=== PATIENT | female | born 1995 | race Two or more races ===

== ENCOUNTER 2021-07-14 09:54 | Emergency (ER) | payer SELFPAY ==
[~2021-07-14] VITALS: Ht 162.6 cm; Wt 72.7 kg
[2021-07-14] MEDS ORDERED: IV NORMAL SALINE 1000ML BAG 1,000 ML IV ONE (10:30)
[2021-07-14 10:39] LABS: BASO % 0 % (0-3); EOS % 0 % (0-3); HEMOGLOBIN 14.7 g/dL (12.0-15.5); LYMPH # 1.7 x10^3/uL (1.0-4.8); LYMPH % 22 % (24-48); MEAN CORPUSCULAR HEMOGLOBIN 30 pg (25-35); MEAN CORPUSCULAR HGB CONC 35 g/dL (31-37); MEAN CORPUSCULAR VOLUME 84 fL (79-100); MONO # 0.3 x10^3/uL (0.0-1.1); MONO % 4 % (0-9); NEUT # 5.8 x10^3/uL (1.8-7.7); NEUT % 74 % (31-73); PLATELET COUNT 285 x10^3/uL (140-400); RED BLOOD COUNT 4.97 x10^6/uL (3.50-5.40); RED CELL DISTRIBUTION WIDTH 12.9 % (11.5-14.5); WHITE BLOOD COUNT 7.9 x10^3/uL (4.0-11.0)
[2021-07-14] MEDS ORDERED: ASPIRIN ENTERIC COATED 325 MG TABLET.DR. PO ONE (10:45)
[2021-07-14 10:47] LABS: CALCIUM 9.2 mg/dL (8.5-10.1); CREATININE 0.7 mg/dL (0.6-1.0); GFR 99.6; POTASSIUM 3.4 mmol/L (3.5-5.1)
--- NOTE | 2021-07-14 10:50 | RAD ---
AP chest. HISTORY: Chest pain AP view was taken of the chest. The patient's taken a very poor inspiration. There is no pleural effu jesús. The heart is normal in size. There is mild crowding of the vasculature. No definite infiltrates are noted. IMPRESSION: 1. Poor inspiration. 2. Crowding of the vasculature without definite infiltrates. Electronically signed by: Quincy Michelle MD (07/14/2021 10:48 AM) [facility]
[2021-07-14 10:53] LABS: ALBUMIN 3.8 g/dL (3.4-5.0); ALBUMIN/GLOBULIN RATIO 0.8 (1.0-1.7); MAGNESIUM 1.9 mg/dL (1.8-2.4); TOTAL BILIRUBIN 0.4 mg/dL (0.2-1.0); TOTAL PROTEIN 8.4 g/dL (6.4-8.2)
--- NOTE | 2021-07-14 10:54 | PHYS DOC ---
Past Medical History Additional Past Medical Histor: Chronic chest pain, "heart issue" Past Surgical History: No Surgical History Smoking Status: Never Smoker Alcohol Use: None Drug Use: None General Adult EDM: Chief Complaint: CHEST PAIN HPI: HPI: Patient is a 26 year old female presents with midsternal chest pain with radiation down left arm and into her hand. Patient reports she has had this symptom for a "long time" (YEARS). Reports concern today because the pain was worse than normal and had associated malaise, nausea, and headache. Denies known exposure to COVID-19. Reports she is unvaccinated. Patient is Pashto speaking only. Use of telephone tool polisher service was utilized. Review of Systems: Review of Systems: Constitutional: Denies fever or chills; reports malaise Eyes: Denies redness or eye pain HENT: Denies nasal congestion or sore throat Respiratory: Denies cough or shortness of breath Cardiovascular: Reports chest pain; denies palpitations GI: Denies abdominal pain, nausea, or vomiting : Denies dysuria or hematuria Musculoskeletal: Denies back pain; reports left arm pain Integument: Denies rash or skin lesions Neurologic: Reports headache; denies focal weakness or sensory changes Complete systems were reviewed and found to be within normal limits, except as documented in this note. Heart Score: C/O Chest Pain: Yes HEART Score for Chest Pain: HEART Score for Chest Pain Response (Comments) Value History Slighlty/Non-Suspicious 0 ECG Normal 0 Age < 45 0 Risk Factors No Risk Factors 0 Troponin < Normal Limit 0 Total 0 Risk Factors: Risk Factors: DM, Current or recent (<one month) smoker, HTN, HLP, family history of CAD, obesity. Risk Scores: Score 0 - 3: 2.5% MACE over next 6 weeks - Discharge Home Score 4 - 6: 20.3% MACE over next 6 weeks - Admit for Clinical Observation Score 7 - 10: 72.7% MACE over next 6 weeks - Early Invasive Strategies Current Medications: Current Medications Medications (Trade) Dose Ordered Sig/Zuleyma Start Time Stop Time Status Last Admin Dose Admin Aspirin (Ecotrin) 325 mg 1X ONCE 07/14/21 10:45 07/14/21 10:46 UNV Sodium Chloride 1,000 ml @ 1,000 mls/hr 1X ONCE 07/14/21 10:30 07/14/21 11:29 UNV Physical Exam: PE: Constitutional: Well developed, well nourished, no acute distress, non-toxic appearance HENT: Normocephalic, atraumatic Eyes: EOMI, conjunctiva normal, no discharge Neck: Normal range of motion, no tenderness, supple Lungs & Thorax: No respiratory distress, equal chest rise and fall Abdomen: Soft, no tenderness Skin: Warm, dry, no erythema, no rash Extremities: No tenderness, ROM intact, no edema Neurologic: Alert and oriented X 3, normal motor function, normal sensory function, no focal deficits noted Psychologic: Affect anxious, judgment normal Current Patient Data: Labs: Laboratory Tests Test 07/14/21 10:20 Sodium Level 141 mmol/L (136-145) Potassium Level 3.4 mmol/L (3.5-5.1) L Chloride Level 106 mmol/L (98-107) Carbon Dioxide Level 25 mmol/L (21-32) Anion Gap 10 (6-14) Blood Urea Nitrogen 6 mg/dL (7-20) L Creatinine 0.7 mg/dL (0.6-1.0) Estimated GFR (Cockcroft-Gault) 99.6 BUN/Creatinine Ratio 9 (6-20) Glucose Level 107 mg/dL (70-99) H Calcium Level 9.2 mg/dL (8.5-10.1) Magnesium Level Pending Total Bilirubin Pending Aspartate Amino Transferase (AST) Pending Alanine Aminotransferase (ALT) Pending Alkaline Phosphatase Pending Total Protein Pending Albumin Pending Albumin/Globulin Ratio Pending Lipase Pending Laboratory Tests 07/14/21 10:20 EKG: EKG: @1017 NSR at 85bpm, NO ST elevation, QRS 86ms, QT/QTc 354/427ms, t wave inv ersion III @1102 NSR at 84bpm, NO ST elevation, QRS 84ms, QT/QTc 364/433ms, t wave inversion III Radiology/Procedures: Radiology/Procedures: PROCEDURE: PORTABLE CHEST 1V AP chest. HISTORY: Chest pain AP view was taken of the chest. The patient's taken a very poor inspiration. There is no pleural effusion. The heart is normal in size. There is mild crowding of the vasculature. No definite infiltrates are noted. IMPRESSION: 1. Poor inspiration. 2. Crowding of the vasculature without definite infiltrates. Electronically signed by: Quincy Michelle MD (07/14/2021 10:48 AM) [facility] Course & Med Decision Making: Course & Med Decision Making Pertinent Labs and Imaging studies reviewed. (See chart for details) Patient presents with acute on chronic chest pain. Reports has had similar pain for a "long time". Patient with worsening pain and associated headache and generalized malaise. Cannot fully exclude COVID-19. COVID testing pending. EKG stable. Labs obtained and posted to chart. Troponin WNL. D-dimer negative . CXR without acute process. HEART score 0. Patient stable for discharge with outpatient follow-up with PCP. Discussed findings and plan with patient, who acknowledges understanding and agreement. COVID-19 CRITERIA: The patient was evaluated during the global COVID-19 pandemic, and that diagnosis was suspected/considered upon their initial presentation. Their evaluation, treatment and testing was consistent with current guidelines for patients who present with complaints or symptoms that may be related to COVID-19. Dragon Disclaimer: Dragon Disclaimer: This electronic medical record was generated, in whole or in part, using a voice recognition dictation system. Departure Departure Impression: Primary Impression: Chronic chest pain Additional Impression: Suspected 2019 novel coronavirus infection Disposition: HOME / SELF CARE / HOMELESS Condition: STABLE Referrals: NO PCP (PCP) Patient Instructions: Chest Pain (Nonspecific), [id number], Chronic Pain Additional Instructions: Definicin Se le realiz la prueba de deteccin del COVID-19 o se le diagnostic dicha enfermedad. Es saad infeccin ocasionada por un nuevo tipo de coronavirus. En la mayora de los casos, el COVID-19 provoca sntomas similares a los del resfriado. En algunas personas, puede ocasionar sntomas ms graves, bobby problemas respiratorios. No existe un tratamiento para el virus COVID-19. El cuerpo elimina la infeccin con el tiempo. El cuidado personal ayuda a aliviar el malestar. Pasos que debe seguir 1. Cuidados personales Descanse cuando sea necesario. Los hbitos saludables pueden ayudarlo a sentirse mejor. Algunas medidas para lograr cambios incluyen lo siguiente: - Elija alimentos saludables, bobby frutas y verduras. Karime abundante cantidad de agua ashleigh todo el da. - Duerma alisha por la noche. - Si fuma, intente no hacerlo. Lindrith ayudar a mejorar la respiracin. - Evite el alcohol. 2. Mantenga sanos a los dems El virus puede contagiarse a otras personas. Cada vez que estornuda o tose, se liberan gotitas. Las gotitas pueden entrar en la boca, la nariz o los ojos de las personas que se encuentran cerca de usted y ocasionar la infeccin. Para reducir las probabilidades de contagiar el virus COVID-19 a otros, tenga en cuenta lo siguiente: - Qudese en casa el tiempo que el mdico se lo indique. Es posible que deba quedarse en casa hasta que la enfermedad desaparezca. Salga nicamente para recibir atencin mdica o en laila de urgencia. - Evite las reas pblicas, los eventos o el transporte pblico. No reanude las actividades laborales o escolares hasta que el mdico lo autorice. - Llame previamente si necesita asistir a un centro mdico. Avise que es posible que haya contrado COVID-19. Lindrith ayudar a que le indiquen adonde debe dirigirse. Tambin pueden pedirle que use saad mscara facial cuando vaya al consultorio. Si llama a los servicios de asistencia mdica de urgencias, avseles que es posible que haya contrado COVID-19. Mientras est en casa: - Evite el contacto directo con otras personas. Mantngase a saad distancia aproximada de 2 metros. Si es posible, pasen la mayor parte del tiempo en levy separadas. - Use saad mscara facial si estar en contacto directo con otras personas, por ejemplo, si compartir saad habitacin o un vehculo. - Pida a alguien que limpie las superficies comunes de la casa. Limpie picaportes, mesadas y lavamanos con limpiadores domsticos todos los byers. - Al toser o estornudar, cbrase con un pauelo de papel. Despus de usarlo, deschelo de inmediato. Si no tiene un pauelo de papel, tosa o estornude en el pliegue del codo. - Lvese las keith con frecuencia. Lvese las keith despus de estornudar o toser. Lvese con agua y jabn ashleigh, al menos, 20 segundos. Si no dispone de agua y jabn, use un limpiador de keith a base de alcohol. - No cocine para otros. Evite compartir objetos personales, bobby tenedores, cucharas o cepillos de dientes. - Mientras est enfermo, evite el contacto directo con las mascotas. No hay indicios de si el virus se transmite a las mascotas. Esta es saad medida de seguridad que debe tenerse en cuenta hasta que se sepa ms acerca de brittanie virus. El aislamiento puede ser frustrante. La interaccin social puede ayudar. Mantngase en contacto con amigos y familiares por telfono u otros medios tecnolgicos. Puede interactuar con otras personas en el hogar, dave mantenga saad distancia meredith de aproximadamente 2 metros. Seguimiento Las pruebas para confirmar la presencia del COVID-19 pueden demorar algunos byers. Es posible que deba seguir los pasos mencionados anteriormente hasta que estn los resultados de las pruebas. Lo llamarn del consultorio mdico para saber si maier habido algn cambio en telles huey. Rekha le avisarn cuando pueda volver a estar cerca de otras personas. Problemas a los que debe estar atento Comunquese con el mdico si no se recupera segn lo previsto o si tiene problemas bobby los siguientes: - Dificultad para respirar - Dolor de pecho - Empeoramiento de los sntomas Si janet que tiene saad urgencia, llame a los servicios de asistencia mdica de urgencias de inmediato. As taken from [employer] Tramadol Hcl (TRAMADOL HCL) 50 Mg Tablet 50 MG PO Q6HRS PRN for PAIN, #14 TAB Prov: AGATHA SEBASTIAN DO 07/14/21 COVID-19 Assessment: COVID-19 Patient Risks: Age 65 or older: No Sign of co-morbidity: No Exp to person + for COVID: No Exp to PUI: No Travel from affected area: No Lower respiratory symptoms: No Fever: No Other: Yes PPE Use: Full PPE with N95 mask or PAPR: Yes AGATHA SEBASTIAN DO Jul 14, 2021 10:54
[2021-07-14 11:54] LABS: BILIRUBIN,URINE NEGATIVE (NEG); CLARITY,URINE CLEAR; COLOR,URINE YELLOW; NITRITE,URINE NEGATIVE (NEG); PROTEIN,URINE NEGATIVE (NEG-TRACE); UROBILINOGEN,URINE 0.2 mg/dL (0.2 mg/dL)
[2021-07-14 12:34] LABS: BACTERIA,URINE FEW /HPF (0-FEW); RBC,URINE 0 /HPF (0-2); WBC,URINE 0 /HPF (0-4)
[2021-07-14] MEDS ORDERED: TRAM50TA PO (13:18)
[2021-07-14 13:30] VITALS: BP 104/57
--- NOTE | 2021-07-14 14:58 | EKG ---
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
--- NOTE | 2021-07-14 14:58 | EKG ---
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
--- NOTE | 2021-07-15 09:36 | NUR ---
IP: Informed pt of negative covid test. Pt verbalized understanding.
== END 2021-07-14 13:38 | disposition home or self-care (01) ==
LOC: ER 09:54
DX: G89.29 Other chronic pain (principal); R07.2 Precordial pain; Z20.822 Contact with and (suspected) exposure to COVID-19; R53.81 Other malaise; R51.9 Headache, unspecified; R11.0 Nausea
CPT/HCPCS: 36415; 71045; 80053; 81001; 83690; 83735; 83880; 84484; 85025; 85379; 93005; 96360; 99285; J7030; U0003; U0005